=== PATIENT | male | born 1990 | race Hispanic/Latino ===

== ENCOUNTER 2017-03-15 12:26 | Emergency (ER) | payer SELFPAY ==
--- NOTE | 2017-03-15 13:38 | Emergency Department Report ---
Chief Complaint: Pain General Stated Complaint: SIDE/BACK PAIN Time Seen by Provider: 03/15/17 13:35 - HPI History of Present Illness: PT c/o R sided chest wall pain x 2 months. PT states 2 months ago he had PNA and had a chest tube inserted. PT states the pain from the chest tube has not gone away - ROS Review of Systems: + chest wall pain + cough + low back pain - Exam Physical Exam: PT looks well, non toxic, no acute resp distress R chest wall with scars MSE screening note: Focused history and physical exam performed. Due to findings the following was ordered: CXR ED Disposition for MSE Condition: Stable
[2017-03-15 13:40] VITALS: BP 125/75
--- NOTE | 2017-03-15 14:10 | XRay Report ---
ROUTINE CHEST, TWO VIEWS: HISTORY: Right sided chest pain. The trachea, heart, mediastinal contour, lung rubio and bony thorax are unremarkable. IMPRESSION: Unremarkable chest x-ray.
--- NOTE | 2017-03-16 14:36 | ED Elopement Review ---
ED Pt Elopement review - Call Back decision Pt Call Back Decision: Pt to F/U with PMD (cxr unremarkable. patient has mild tachycardia which could be due to pain however, further evaluation recommended)
== END 2017-03-15 19:55 | disposition left against medical advice (07) ==
LOC: ED 12:26
DX: M54.9 Dorsalgia, unspecified (principal); Z53.21 Procedure and treatment not carried out due to patient leaving prior to being seen by health care provider
CPT/HCPCS: 71020

== ENCOUNTER 2017-03-24 16:31 | Emergency (ER) | payer OTHER ==
[2017-03-24 17:47] LABS: Hematocrit 46.5 % (35.5-45.6); Hemoglobin 15.6 gm/dl (11.8-15.2); Mean Corpuscular HGB Conc 34 % (32-34); Mean Corpuscular Hemoglobin 31 pg (28-32); Mean Corpuscular Volume 92 fl (84-94); Platelet Count 275 K/mm3 (140-440); Red Blood Count 5.04 M/mm3 (3.65-5.03); Red Cell Distribution Width 14.8 % (13.2-15.2); White Blood Count 6.8 K/mm3 (4.5-11.0)
[2017-03-24 18:04] LABS: Anion Gap 17 mmol/L; BUN/Creatinine Ratio 12.85; Blood Urea Nitrogen 9 mg/dL (9-20); Carbon Dioxide 27 mmol/L (22-30); Chloride 101.9 mmol/L (98-107); Glucose 100 mg/dL (75-100); Potassium 4.3 mmol/L (3.6-5.0); Sodium 142 mmol/L (137-145)
[2017-03-24 19:31] LABS: Bilirubin,Urine NEG (Negative); Blood,Urine NEG (Negative); Ketones,Urine NEG (Negative); Leukocyte Esterase,Urine NEG (Negative); Mucus,Urine FEW /HPF; Nitrite,Urine NEG (Negative); Protein,Urine <15 mg/dL mg/dL (Negative); Urobilinogen,Urine < 2.0 mg/dL (<2.0)
[2017-03-25] MEDS ORDERED: TYLENOL ONE (04:45)
[2017-03-25] MEDS ORDERED: TYLENOL PO ONE (04:45)
--- NOTE | 2017-03-25 06:34 | Emergency Department Report ---
ED General Adult HPI - General Chief complaint: Back Pain/Injury Stated complaint: CHEST PAIN /RIB PAIN/BACK PAIN Time Seen by Provider: 03/25/17 06:20 Source: patient Mode of arrival: Ambulatory Limitations: No Limitations - History of Present Illness Initial comments: Patient complains of pain at his incision site for a right thoracotomy which has been present since his procedure more than 30 days ago. He denies any dyspnea cough or recent fever. The area of discomfort is precisely about his right thoracotomy. This is a recurrent and chronic problem without acute change. He was seen at another facility and hospitalized for "20 days". He does not have a primary care provider. I would presume he had an empyema. He is finished his course of antibiotics. He denies other symptoms or illness. -: week(s) Location: chest Radiation: non-radiation Severity scale (0 -10): 4 Quality: aching Consistency: intermittent Improves with: none Worsens with: none Associated Symptoms: denies other symptoms Treatments Prior to Arrival: none - Related Data Previous Rx's Medication Instructions Recorded Last Taken Type traMADol [Ultram] 50 mg PO Q6HR PRN #14 tablet 03/25/17 Unknown Rx Allergies Allergy/AdvReac Type Severity Reaction Status Date / Time Penicillins Allergy Swelling Verified 03/15/17 13:40 ED Review of Systems ROS: Stated complaint: CHEST PAIN /RIB PAIN/BACK PAIN Other details as noted in HPI Constitutional: denies: chills, fever Eyes: denies: eye pain, eye discharge, vision change ENT: denies: ear pain, throat pain Respiratory: denies: cough, shortness of breath, wheezing Cardiovascular: chest pain. denies: palpitations Endocrine: no symptoms reported Gastrointestinal: denies: abdominal pain, nausea, diarrhea Genitourinary: denies: urgency, dysuria Musculoskeletal: denies: back pain, joint swelling, arthralgia Skin: denies: rash, lesions Neurological: denies: headache, weakness, paresthesias Psychiatric: denies: anxiety, depression Hematological/Lymphatic: denies: easy bleeding, easy bruising ED Past Medical Hx - Past Medical History Additional medical history: PNEUMONIA with chest tube - Surgical History Additional Surgical History: RIGHT LUNG SURGERY ; CHEST TUBE - Social History Smoking Status: Current Every Day Smoker Substance Use Type: None - Medications Home Medications: Home Medications Medication Instructions Recorded Confirmed Last Taken Type traMADol [Ultram] 50 mg PO Q6HR PRN #14 tablet 03/25/17 Unknown Rx ED Physical Exam - General Limitations: No Limitations General appearance: alert, in no apparent distress - Head Head exam: Present: atraumatic, normocephalic - Eye Eye exam: Present: normal appearance. Absent: scleral icterus - ENT ENT exam: Present: mucous membranes moist - Neck Neck exam: Present: normal inspection - Respiratory Respiratory exam: Present: normal lung sounds bilaterally, chest wall tenderness (some mild chest wall tenderness but no crepitus). Absent: respiratory distress - Cardiovascular Cardiovascular Exam: Present: regular rate, normal rhythm. Absent: systolic murmur, diastolic murmur, rubs, gallop - GI/Abdominal GI/Abdominal exam: Present: soft, normal bowel sounds. Absent: distended, tenderness, guarding, rebound, rigid - Rectal Rectal exam: Present: deferred - Extremities Exam Extremities exam: Present: normal inspection - Back Exam Back exam: Present: normal inspection - Neurological Exam Neurological exam: Present: alert, oriented X3, CN II-XII intact. Absent: motor sensory deficit - Psychiatric Psychiatric exam: Present: normal affect, normal mood - Skin Skin exam: Present: warm, dry, intact, other (the patient has a moderately large thoracotomy scar which is well healed in his right mid lateral costal area ). Absent: rash ED Course Vital Signs 03/24/17 03/25/17 17:13 04:42 Temperature 98.8 F 98.0 F Pulse Rate 80 84 Respiratory 16 18 Rate Blood Pressure 118/82 128/74 O2 Sat by Pulse 97 100 Oximetry ED Medical Decision Making - Lab Data Result diagrams: 03/24/17 17:24 03/24/17 17:24 Laboratory Results - last 24 hr 03/24/17 03/24/17 03/24/17 17:24 17:24 18:58 WBC 6.8 RBC 5.04 H Hgb 15.6 H Hct 46.5 H MCV 92 MCH 31 MCHC 34 RDW 14.8 Plt Count 275 Sodium 142 Potassium 4.3 Chloride 101.9 Carbon Dioxide 27 Anion Gap 17 BUN 9 Creatinine 0.7 L Estimated GFR > 60 BUN/Creatinine Ratio 12.85 Glucose 100 Calcium 9.0 Urine Color Yellow Urine Turbidity Clear Urine pH 6.0 Ur Specific [place] 1.013 Urine Protein <15 mg/dl Urine Glucose (UA) Neg Urine Ketones Neg Urine Blood Neg Urine Nitrite Neg Urine Bilirubin Neg Urine Urobilinogen < 2.0 Ur Leukocyte Esterase Neg Urine WBC (Auto) 1.0 Urine RBC (Auto) 2.0 Urine Mucus Few - Radiology Data interpreted by me: Chest x-ray shows no acute process - Medical Decision Making As far as I can tell this is post-incisional pain which patient has had for many weeks without an acute process. He will be referred for primary care and pain management. Critical care attestation.: If time is entered above; I have spent that time in minutes in the direct care of this critically ill patient, excluding procedure time. ED Disposition Clinical Impression: Incisional pain, Chest wall pain following surgery Disposition: TO HOME OR SELFCARE Is pt being admited?: No Does the pt Need Aspirin: No Condition: Stable Instructions: Chest Pain (ED) Additional Instructions: Follow-up with a primary care provider. Return any acute change or problem as needed. Prescriptions: traMADol [Ultram] 50 mg PO Q6HR PRN #14 tablet PRN Reason: Pain Referrals: PRIMARY CARE [Primary Care Provider] - 3-5 Days [facility] [Provider Group] - 3-5 Days Time of Disposition: 07:03
[2017-03-25 08:06] VITALS: BP 122/76
--- NOTE | 2017-03-25 10:47 | XRay Report ---
CHEST TWO VIEWS: 03/24/17 16:31:00 CLINICAL: Shortness of breath. Chest pain. Recent pneumonia and chest tube. COMPARISON: 03/15/17 FINDINGS: Normal heart and pulmonary vasculature. Stable mild elevation of the right hemidiaphragm. The lungs are clear. No tubes or lines. The bones and soft tissues are normal. IMPRESSION: Negative chest.No acute cardiopulmonary process.
== END 2017-03-25 07:30 | disposition home or self-care (01) ==
LOC: ED 16:31
DX: G89.12 Acute post-thoracotomy pain (principal); F17.210 Nicotine dependence, cigarettes, uncomplicated; Z98.890 Other specified postprocedural states; Z88.0 Allergy status to penicillin
CPT/HCPCS: 36415; 71020; 80048; 81001; 85027; 93005; 93010; 99284